=== PATIENT | male | born 1955 | race Caucasian/White ===

== ENCOUNTER → 2024-04-20 06:18 | Day surgery (SDC) | payer MEDICARE, OTHER, SELFPAY | LOC: GI 06:18 | PROVIDERS: ATTENDING PHYSICIAN Internal Medicine Gastroenterology | DX: K22.89 Other specified disease of esophagus (principal); K44.9 Diaphragmatic hernia without obstruction or gangrene; K31.89 Other diseases of stomach and duodenum; R13.10 Dysphagia, unspecified | CPT/HCPCS: 43239; 88305; 88342 ==

== ENCOUNTER → 2024-09-25 13:00 | Outpatient (REF) | payer MEDICARE, OTHER, SELFPAY | LOC: RCS 13:00 | PROVIDERS: ATTENDING PHYSICIAN Internal Medicine Cardiovascular Disease; FAMILY PHYSICIAN Family Medicine; OTHER PHYSICIAN Colon & Rectal Surgery | DX: Z86.711 Personal history of pulmonary embolism (principal); Z76.89 Persons encountering health services in other specified circumstances; Z86.718 Personal history of other venous thrombosis and embolism; D68.51 Activated protein C resistance; I26.99 Other pulmonary embolism without acute cor pulmonale; R01.1 Cardiac murmur, unspecified | CPT/HCPCS: 93225; 93226 ==

== ENCOUNTER 2025-04-16 16:08 | Emergency (ER) | payer MEDICARE, OTHER, SELFPAY ==
[2025-04-16 16:10] VITALS: BP 162/93
[2025-04-16 18:03] VITALS: BMI 30.3
[2025-04-16 18:04] VITALS: BP 154/83
--- NOTE | 2025-04-16 18:12 | ED.GENMED ---
History of Present Illness
General
Chief Complaint: Musculo-Skeletal Complaint
Source: patient
Exam Limitations: none
Time Seen by Provider: 04/16/25 18:06
Nursing documentation reviewed up to this point in time: agreed with
History of Present Illness
History of Present Illness:
Note:
CHIEF COMPLAINT(S)
left knee pain and swelling after a fall.
HISTORY OF PRESENT ILLNESS
The patient is a 69-year-old male with a past medical history significant for deep vein thrombosis (DVT) on eliquis who presents with left knee pain and swelling following a fall. The patient reports waking up this morning with significant swelling
and bruising in the left knee. He is able to walk on the affected leg but notes increased swelling and discoloration. The patient recalls a previous similar episode 10 years ago after an injury that resulted in a saddle embolus and reflects a
concern for a possible repeat DVT or clot. He is cautious due to his past history. Currently, he denies numbness or tingling in the affected leg and reports increased pain without having taken any analgesics at home. There is no involvement of the
contralateral knee. The patient denies any other injuries. The fall happened when he was exiting a golf cart. He did not hit his head. He not lose consciousness. He not injured his neck. He denies any headaches, dizziness, lightheadedness. He
denies any chest pain, abdominal pain, pain in his upper extremities. The patient takes apixaban (Eliquis) for anticoagulation therapy.
PHYSICAL EXAM
- Nursing notes reviewed and vital signs reviewed.
General: Patient is well appearing and in no acute distress; non-toxic
Skin: Warm and dry, no rashes or lesions
Head: Normocephalic, atraumatic
Eyes: Sclera non-icteric. EOMs intact.
Cardiac: Regular rate
Peripheral Vascular: Left-sided thigh swelling noted with overlying ecchymosis, 2+ dorsalis pedis and posterior tibial pulses
Pulm: Normal respiratory effort, no wheezes, rales, rhonchi
Musculoskeletal: Left knee joint stable no ligament laxity, negative anterior drawer, no laxity with varus valgus stress, no pain with flexion extension, full range of motion, no pain with internal/external rotation of the left hip, no palpable bony
deformities.
Neuro: CN II-XII intact, no focal neurologic deficits. Sensation intact.
Psychiatric: Appropriate mood and affect.
PLAN
The plan includes obtaining an ultrasound of the affected leg to rule out another episode of deep vein thrombosis. Additionally, an X-ray will be performed to exclude any bony abnormalities or fractures contributing to the swelling and pain in the
left knee.
DIFFERENTIAL DIAGNOSIS
The Differential Diagnosis includes, in no particular order and is not limited to:
- Deep Vein Thrombosis (DVT)
- Hematoma
- Contusion
- Knee fracture
- Ligamentous injury
- Bakers cyst
- Infection (e.g., cellulitis)
- Osteoarthritis flare
- Meniscal injury
SUMMARY OF ENCOUNTER
The patient presented to the emergency department due to significant swelling and discoloration of the left knee after a fall, with a history of previous DVT episodes. Given the patients anticoagulation therapy and orthopedic history, diagnostic
imaging is warranted to differentiate between hematoma, new clot formation, or soft tissue injuries. The patient was managed cautiously in light of their significant vascular history.
CHART REVIEW
Reviewed discharge summary from 03/01/2015 patient seen for syncope secondary to bilateral large PE he underwent tPA guided lytic therapy and IVC filter to her was placed he was found to have a right lower extremity DVT
MEDICAL DECISION MAKING
- Number and Complexity of Problems Addressed: Chronic conditions affecting care: Deep vein thrombosis (DVT).
- Data:
- Category 1: Tests and documents � Ultrasound and X-ray of the right knee ordered.
- Risk: Consideration of admission/observation was considered given the patients significant history of DVT and suspicion of potential clot formation. However, following a thorough evaluation, it is decided that the patient may safely return home
with outpatient follow-up.
69-year-old male presents emergency department today with concerns of swelling to his left thigh and knee polyp following a fall. Yesterday he fell when he was getting out of a golf cart. He has no other associated injuries. No head trauma. No
loss consciousness no neck pain. On physical exam he has ecchymosis and swelling noted to left medial thigh however full range of motion of the left lower extremity and he is neurovascularly intact. Patient was sent for x-ray and ultrasound
X-ray shows arthritic changes but no evidence of acute fracture or dislocation. Patient also went for ultrasound which shows no evidence of DVT but does show mild superficial venous thrombus of the calf which is new. Discussed findings with
patient. Discussed conservative management for mild thrombus. Suspect this to not be related to the recent injury. Patient given Gilberto wrap for hematoma. Discussed elevating at home. Patient does have a follow-up with his tobacco stripper in 2 days.
I urged patient to discuss findings with tobacco stripper. Patient expressed understanding. Patient is compliant with Eliquis. Patient stable for discharge.
DIAGNOSIS
- Suspected Hematoma of the right knee, ICD-10 R22.42
- Rule out Deep Vein Thrombosis (DVT), ICD-10 I82.409
Past History
Past History
ED Past Medical History: None, Other (pulmonary embolism 06/25.) and Other (recent PE)
ED Past Surgical History: Other (Right elbow bursa removed by Dr. Bey 2 mos ago. Has f/u appt with [facility] in next week.)
Social History
Tobacco: Non-smoker
Personal:
Living: with family
Employment: Employed (in sales)
Phy Exam
Physical Exam
Physical Exam:
see hpi
Course
Orders/Labs/Results
Orders:
Orders
04/16/25 18:17
CR Knee - Left 4 Or More View* Urgent
Comment:
Reason For Exam: left knee pain
US Periph Venous LOWER Ext LT Urgent
Comment:
Reason For Exam: left lower ext pain and swelling
Vital Signs
Initial and Last Documented VS:
Initial Vital Signs
Temp Pulse Resp BP Pulse Ox
97.7 F 70 18 162/93 98
04/16/25 16:10 04/16/25 16:10 04/16/25 16:10 04/16/25 16:10 04/16/25 16:10
Last Documented Vital Signs
Temp Pulse Resp BP Pulse Ox
97.7 F 58 18 146/84 97
04/16/25 16:10 04/16/25 21:06 04/16/25 18:04 04/16/25 21:06 04/16/25 21:06
*Pulse Oximetry
SaO2: 99
Oxygen Mode of Delivery: Room air
Patient hypoxic: no
*Critical Care Note
Total Time (30-74mins, 75-104mins- exclusive of procedures): Not Applicable
ED Attending Note
-
Portions of this chart may have been created with voice recognition software.� Occasional wrong word or��sound alike� substitutions may have occurred due to the inherent limitations of voice recognition software.
Discharge Plan
Departure
Patient Disposition: Home (Routine Discharge)
Date of Disposition: 04/16/25
Time of Disposition: 21:01
Patient with high blood pressure during this ER visit?: Yes
Condition: Good
Discharge Problem:
Hematoma of left thigh
Instructions: BLOOD PRESSURE, Hematoma
Prescriptions:
No Action
omeprazole magnesium [Prilosec OTC] 20 MG tablet,delayed release (DR/EC)
20 mg PO DAILY
warfarin [Jantoven] 5 MG tablet
5 mg PO DAILY Qty: 60 0RF
Patient Comments:
Lfgpbo-Pwinbxtt-Dtdayj patient takes 5 mg tablet
Rx Instructions:
7.5 on 03/01/15. Then please follow your primary doctor's instructions .
warfarin [Jantoven] 7.5 MG tablet
7.5 mg PO DAILY
Patient Comments:
Fjdola-Fwgnnmq-Rnirmruwc- patient takes 7.5 mg
cefuroxime axetil 500 MG tablet
500 mg PO BID Qty: 20 0RF
Referrals:
UNKNOWN - PT DOES,NOT KNOW [Unknown Provider]
Activity Restrictions/Additional Instructions:
Please continue to take your Eliquis. Please follow-up with your scheduled hematology appointment on Wednesday. Please keep your thigh elevated at home and continue to monitor your symptoms. You can take Tylenol as needed for pain. PLEASE RETURN
TO ER SHOULD YOU DEVELOP INABILITY TO AMBULATE, INCREASING PAIN OR SWELLING, LOSS OF SENSATION, OR ANY OTHER SIGNS OR SYMPTOMS WORRISOME TO YOU.
Interventions
Interventions:
*Risk Screen - Suicide Last Done: 04/16/25 16:13
*General Assessment Last Done: 04/16/25 16:13
*Neglect/Abuse Screening Last Done: 04/16/25 16:13
*ED- Fall Risk Assessment Last Done: 04/16/25 18:06
*ED COVID-19 Vaccine History Last Done: 04/16/25 18:06
*Nursing Disposition Last Done: 04/16/25 21:06
ED-Musculoskeletal Assessment Last Done: 04/16/25 18:06
Discharge Date and Time
Discharge Date/Time: 04/16/25 21:07
Print Language: S[place]
[2025-04-16 21:06] VITALS: BP 146/84
== END 2025-04-16 21:07 | disposition home or self-care (01) ==
LOC: EMR 16:08
PROVIDERS: EMERGENCY PHYSICIAN Emergency Medicine; FAMILY PHYSICIAN Family Medicine
DX: S70.12XA Contusion of left thigh, initial encounter (principal); W19.XXXA Unspecified fall, initial encounter; I82.812 Embolism and thrombosis of superficial veins of left lower extremity; Z79.01 Long term (current) use of anticoagulants; Z86.711 Personal history of pulmonary embolism; Z86.718 Personal history of other venous thrombosis and embolism
CPT/HCPCS: 99284; 73564; 93971